=== PATIENT | female | born 1965 | race Caucasian/White ===

== ENCOUNTER → 2020-05-21 | Day surgery (SDC) | payer OTHER ==
[~2020-05-21] MED LIST: BUPIVACAINE HCL 0.5% INJ 30 ML VIAL INJ ONE; CEFAZOLIN SOD 1 GM VIAL ONE; DEXILANT60 MG PO; LIDOCAINE HCL 1% LOCAL INJ 20 ML VIAL ONE; LIDOCAINE HCL 2% LOCAL INJ 5 ML SDV VIAL INJ ONE; PROPOFOL IV EMULSION 10 MG/ML 20 ML VIAL ONE
[2020-05-21 10:35] VITALS: BP 105/56
--- NOTE | 2020-05-21 12:48 | Operative Report ---
DATE OF PROCEDURE: 05/21/2020 SURGEON: Kirstie Macias MD PREPROCEDURAL DIAGNOSIS: Left carpal tunnel syndrome. POSTPROCEDURAL DIAGNOSIS: Left carpal tunnel syndrome. PROCEDURE PERFORMED: Left mini-open carpal tunnel release, peripheral nerve block. ANESTHESIA: MAC with sedation and local. COMPLICATIONS: None. SPECIMENS: None. ESTIMATED BLOOD LOSS: Minimal. INDICATIONS FOR PROCEDURE: Lexi Maldonado is a 54-year-old female with longstanding history of left-sided carpal tunnel syndrome. Her symptoms are refractory to nonoperative management. EMG nerve conduction studies demonstrate left carpal tunnel syndrome. Her benefits and risks of surgery were discussed with the patient including bleeding, infection, damage to vascular structure, need for additional surgery, persistent pain, recurrence, nerve injury, possible loss of life or limb, and knowing this, she elected to proceed with the surgery. DESCRIPTION OF PROCEDURE: The patient was identified in the preoperative holding area where the above noted site was marked. She was then transported to the operating room and a time-out was performed. We performed peripheral nerve block containing 1% lidocaine and 0.5% Marcaine given to the median nerve and forearm as well as locally down into the subcutaneous tissues. She was placed supine on the table with the left upper extremity on to the hand table. Approximately 2 cm incision was made in line with the radial border of the ring finger and proximal to kaplans cardinal line. We incised the skin and subcutaneous tissue taking care to achieve careful hemostasis. Prior to make an incision, the limb was exsanguinated with the Esmarch bandage. The tourniquet was raised to 250 mmHg. Preoperative antibiotics were dosed. We made 2 cm incision and taking care to achieve careful hemostasis. The palmar fascia was divided longitudinally. Transverse carpal ligament was then encountered and the sequential dilators followed by the blade unroofing the carpal tunnel in its entirety releasing transverse carpal ligament. A freer was introduced and ensured that we had no injury to the median nerve underneath. We then turned our attention distally. Curved Iris scissors were used to release the remainder of the transverse carpal ligament. We had treated with adequate decompression with the exposure of the hypothenar fat. At this point, we were then satisfied with the release. The wound was copiously irrigated and skin was then closed with 4-0 nylon sutures. A soft sterile dressing was placed and the tourniquet was let down. The fingers pinked up nicely. The patient was then awoken from anesthesia and taken to PACU in stable condition. POSTOPERATIVE PLAN: The patient will be discharged home today. She will see us back in clinic in 10 to 14 days for suture removal. MD MEETA Bran/CARMEN /[id number] [email or web address]
== END | disposition home or self-care (01) ==
LOC: OR 04-25 12:16
PROVIDERS: ATTEND Orthopaedic Surgery
DX: G56.02 Carpal tunnel syndrome, left upper limb (principal); K21.9 Gastro-esophageal reflux disease without esophagitis; D64.9 Anemia, unspecified; F41.9 Anxiety disorder, unspecified; Z01.810 Encounter for preprocedural cardiovascular examination; Z01.812 Encounter for preprocedural laboratory examination; Z11.59 Encounter for screening for other viral diseases
CPT/HCPCS: 64721; 81025; 93005; J0690; J2001 ×2; J2704; U0002 ×2